=== PATIENT | female | born 1975 | race Caucasian/White ===

== ENCOUNTER 2023-10-29 07:45 | Emergency (ER) | payer MEDICAID, OTHER ==
[~2023-10-29] VITALS: Ht 167.6 cm; Wt 62.6 kg
[2023-10-29 08:45] VITALS: BP 121/84; TEMP 98.1
[2023-10-29] MEDS ORDERED: [UNRECOGNIZED DRUG - CODE] TP (09:17)
[2023-10-29 09:30] VITALS: O2SAT 98
== END 2023-10-29 09:30 | disposition home or self-care (01) ==
LOC: ER 07:45
DX: L29.9 Pruritus, unspecified (principal); L21.0 Seborrhea capitis

== ENCOUNTER 2023-10-29 21:27 | Emergency (ER) | payer MEDICAID ==
[~2023-10-29] VITALS: Ht 167.6 cm; Wt 59.0 kg
[~2023-10-29 21:27] MED LIST: [UNRECOGNIZED DRUG - CODE] TP
[2023-10-30 00:28] VITALS: BP 135/81; TEMP 98.1; O2SAT 98
== END 2023-10-30 04:25 | disposition home or self-care (01) ==
LOC: ER 21:29
DX: L29.9 Pruritus, unspecified (principal); Z79.899 Other long term (current) drug therapy